=== PATIENT | female | born 1950 ===

== ENCOUNTER → 2023-09-28 10:05 | Outpatient (BNVA) | payer MEDICARE, SELFPAY | PROVIDERS: PCP Nurse Practitioner Family; Visit Provider Nurse Practitioner Family | DX: E03.9 Hypothyroidism, unspecified (principal); M81.0 Age-related osteoporosis without current pathological fracture; Z76.89 Persons encountering health services in other specified circumstances | CPT/HCPCS: 84443; 84481 ==